=== PATIENT | male | born 1945 | race Native Hawaiian/Other Pacific Islander ===

== ENCOUNTER 2017-06-10 15:12 | Outpatient (CLI) | payer OTHER | END 2017-06-10 18:20 | disposition home or self-care (01) | LOC: RAD 15:12 | DX: J40 Bronchitis, not specified as acute or chronic (principal) ==

== ENCOUNTER 2019-05-21 10:58 | Outpatient (CLI) | payer OTHER | END 2019-05-21 19:36 | disposition home or self-care (01) | LOC: MRI 10:58 → RAD 10:58 → MRI 19:36 | DX: M54.5 Low back pain (principal); M62.838 Other muscle spasm; M47.816 Spondylosis without myelopathy or radiculopathy, lumbar region; M51.9 Unspecified thoracic, thoracolumbar and lumbosacral intervertebral disc disorder ==

== ENCOUNTER 2019-07-26 13:23 | Outpatient (CLI) | payer OTHER | END 2019-07-26 20:11 | disposition home or self-care (01) | LOC: US 13:23 | DX: N19 Unspecified kidney failure (principal) ==

== ENCOUNTER 2021-05-01 10:35 | Outpatient (CLI) | payer OTHER | END 2021-05-01 18:59 | disposition home or self-care (01) | LOC: RAD 10:35 | PROVIDERS: ATTEND Nurse Practitioner Family | DX: R91.8 Other nonspecific abnormal finding of lung field (principal); J40 Bronchitis, not specified as acute or chronic ==

== ENCOUNTER 2021-05-07 13:31 | Outpatient (CLI) | payer OTHER | END 2021-05-07 19:05 | disposition home or self-care (01) | LOC: RAD 13:31 | PROVIDERS: ATTEND Nurse Practitioner Family | DX: J18.9 Pneumonia, unspecified organism (principal) ==

== ENCOUNTER 2021-10-03 15:58 | Outpatient (CLI) | payer OTHER | END 2021-10-03 19:45 | disposition home or self-care (01) | LOC: RAD 15:58 | PROVIDERS: ATTEND Nurse Practitioner Family | DX: R06.02 Shortness of breath (principal); R06.2 Wheezing ==